=== PATIENT | male | born 1955 | race Caucasian/White ===

== ENCOUNTER 2018-12-12 08:51 | Outpatient (REF) | payer BC, SELFPAY ==
[2018-12-12 18:25] LABS: HCT 46.5 % (40.0-50.0); Mean Corp. HGB Concentration 34.4 g/dL (32.0-36.0); Mean Corpuscular Hemoglobin 31.8 pg (27.0-33.0); Mean Corpuscular Volume 92.4 fL (80-95); Mean Platelet Volume 10.7 fL (8.0-11.0); Platelet Count 141 x1000/uL (130-400); RBC 5.03 m/cumm (4.50-6.00); White Blood Cell Count 5.64 k/cumm (4.4-10.8)
[2018-12-12 18:48] LABS: Anion Gap 6.4 mmol/L (3-11); BUN 16 mg/dL (7-18); CO2 30.6 mmol/L (21.0-32.0); CREATININE 0.92 mg/dL (0.70-1.30); Calcium 8.2 mg/dL (8.5-10.1); Chloride 105 mmol/L (98-107); FREE T4 0.93 ng/dL (0.76-1.46); Glucose 96 mg/dL (70-100); Potassium 4.1 mmol/L (3.5-5.1); Sodium 142 mmol/L (136-145); TSH 7.85 uIU/mL (0.358-3.74)
[2018-12-12 19:29] LABS: Hemoglobin A1C 5.5 % (4.5-6.2)
[2018-12-14 10:42] LABS: PSA, Screening 1.9 ng/ml (0-4.5)
== END 2018-12-12 09:11 ==
LOC: NCHCN 08:51
PROVIDERS: PCP Internal Medicine; Visit Provider Internal Medicine
DX: I48.0 Paroxysmal atrial fibrillation (principal); E05.00 Thyrotoxicosis with diffuse goiter without thyrotoxic crisis or storm
CPT/HCPCS: 80048; 84153; 85027; 83036; 84439; 84443

== ENCOUNTER 2019-06-13 16:43 | Outpatient (REF) | payer BC, SELFPAY ==
[2019-06-13 20:13] LABS: HCT 47.1 % (40.0-50.0); HGB 15.9 g/dL (13.5-17.5); Mean Corp. HGB Concentration 33.8 g/dL (32.0-36.0); Mean Corpuscular Hemoglobin 31.1 pg (27.0-33.0); Mean Corpuscular Volume 92.2 fL (80-95); Mean Platelet Volume 10.3 fL (8.0-11.0); Platelet Count 183 x1000/uL (130-400); RBC 5.11 m/cumm (4.50-6.00); RBC Distribution Width 13.8 % (11.8-14.1); White Blood Cell Count 6.85 k/cumm (4.4-10.8)
[2019-06-13 20:32] LABS: TSH 5.49 uIU/mL (0.36-3.74)
== END 2019-06-13 17:03 ==
LOC: NCHCN 16:43
PROVIDERS: PCP Internal Medicine; Visit Provider Internal Medicine
DX: I48.0 Paroxysmal atrial fibrillation (principal); E05.00 Thyrotoxicosis with diffuse goiter without thyrotoxic crisis or storm
CPT/HCPCS: 85027; 84443

== ENCOUNTER 2019-10-09 08:52 | Outpatient (REF) | payer BC, SELFPAY ==
[2019-10-09 19:15] LABS: HCT 46.9 % (40.0-50.0); HGB 16.2 g/dL (13.5-17.5); Mean Corp. HGB Concentration 34.5 g/dL (32.0-36.0); Mean Corpuscular Hemoglobin 31.5 pg (27.0-33.0); Mean Corpuscular Volume 91.2 fL (80-95); Mean Platelet Volume 10.1 fL (8.0-11.0); Platelet Count 187 x1000/uL (130-400); RBC 5.14 m/cumm (4.50-6.00); RBC Distribution Width 13.7 % (11.8-14.1); White Blood Cell Count 5.89 k/cumm (4.4-10.8)
[2019-10-09 19:46] LABS: FREE T4 1.01 ng/dL (0.76-1.46); TSH 5.08 uIU/mL (0.36-3.74)
== END 2019-10-09 09:12 ==
LOC: NCHCN 08:52
PROVIDERS: PCP Internal Medicine; Visit Provider Internal Medicine
DX: I48.0 Paroxysmal atrial fibrillation (principal); I10 Essential (primary) hypertension
CPT/HCPCS: 85027; 84439; 84443

== ENCOUNTER 2020-06-30 10:26 | Outpatient (REF) | payer BC, SELFPAY ==
[2020-07-03 13:03] LABS: Patient Race White; SARS-CoV-2 Specimen Source Nasal
[2020-07-03 14:40] LABS: SARS-CoV-2 RNA Detected (Undetected)
== END 2020-06-30 10:46 ==
LOC: NCHCN 10:26
PROVIDERS: PCP Internal Medicine; Visit Provider Internal Medicine
DX: J06.9 Acute upper respiratory infection, unspecified (principal)
CPT/HCPCS: U0003

== ENCOUNTER 2020-09-05 17:14 | Outpatient (REF) | payer BC, SELFPAY ==
[2020-09-05 16:06] LABS: HCT 47.6 % (40.0-50.0); MCH 31.2 pg (27.0-33.0); MCHC 33.6 % (32.0-36.0); MCV 92.8 fL (80-95); MPV 10.2 fL (8.0-11.0); Platelet Count 172 10^3/uL (130-400); RBC 5.13 10^6/uL (4.36-5.78); RDW 14.2 % (11.8-14.1); RDW-SD 48.7 fL; WBC 6.06 10^3/uL (4.4-10.8)
[2020-09-05 16:27] LABS: TSH 7.88 uIU/mL (0.36-3.74)
== END 2020-09-05 17:34 ==
LOC: NCHCN 17:14
PROVIDERS: PCP Internal Medicine; Visit Provider Internal Medicine
DX: E05.00 Thyrotoxicosis with diffuse goiter without thyrotoxic crisis or storm (principal)
CPT/HCPCS: 85027; 84443

== ENCOUNTER 2020-11-05 15:28 | Outpatient (REF) | payer MEDICARE, BC, SELFPAY ==
[2020-11-05 20:40] LABS: HCT 47.8 % (40.0-50.0); HGB 16.6 g/dL (13.5-17.5); MCH 31.9 pg (27.0-33.0); MCHC 34.7 % (32.0-36.0); MCV 91.9 fL (80-95); MPV 10.1 fL (8.0-11.0); Platelet Count 165 10^3/uL (130-400); RDW 12.7 % (11.8-14.1); RDW-SD 43.3 fL
[2020-11-05 20:59] LABS: ALT 27 U/L (16-63); Anion Gap 10.6 mmol/L (3-11); BUN 18 mg/dL (7-18); CO2 28.4 mmol/L (21.0-32.0); CREATININE 0.9 mg/dL (0.70-1.30); Calcium 8.8 mg/dL (8.5-10.1); Calculated LDL 115 mg/dL (<100); Chloride 104 mmol/L (98-107); Cholesterol 173 mg/dL (<200); Glucose 82 mg/dL (74-106); HDL Cholesterol 39 mg/dL (40-60); Potassium 3.5 mmol/L (3.5-5.1); Sodium 143 mmol/L (136-145); Triglyceride 99 mg/dL (<150)
[2020-11-06 17:30] LABS: PSA, Screening 3.2 ng/mL (0.0-4.5)
== END 2020-11-05 15:29 | disposition home or self-care (01) ==
LOC: NCHCN 15:28
PROVIDERS: PCP Internal Medicine; Visit Provider Internal Medicine
DX: I10 Essential (primary) hypertension (principal); I48.0 Paroxysmal atrial fibrillation; F32.9 Major depressive disorder, single episode, unspecified; G47.33 Obstructive sleep apnea (adult) (pediatric); Z12.5 Encounter for screening for malignant neoplasm of prostate
CPT/HCPCS: 80048; 80061; 84153; 85027; 84460

== ENCOUNTER 2021-03-17 11:40 | Outpatient (REF) | payer MEDICARE, BC, SELFPAY ==
[2021-03-17 20:05] LABS: HCT 47.9 % (40.0-50.0); HGB 15.9 g/dL (13.5-17.5); MCH 30.6 pg (27.0-33.0); MCHC 33.2 % (32.0-36.0); MCV 92.3 fL (80-95); MPV 10.1 fL (8.0-11.0); Platelet Count 152 10^3/uL (130-400); RBC 5.19 10^6/uL (4.36-5.78); RDW 13.4 % (11.8-14.1); RDW-SD 45.8 fL; WBC 5.45 10^3/uL (4.4-10.8)
[2021-03-17 20:35] LABS: TSH 5.63 uIU/mL (0.36-3.74)
== END 2021-03-17 11:41 | disposition home or self-care (01) ==
LOC: NCHCN 11:40
PROVIDERS: PCP Internal Medicine; Visit Provider Internal Medicine
DX: I48.0 Paroxysmal atrial fibrillation (principal); E05.00 Thyrotoxicosis with diffuse goiter without thyrotoxic crisis or storm
CPT/HCPCS: 85027; 84443

== ENCOUNTER 2021-11-11 16:55 | Outpatient (REF) | payer MEDICARE, SELFPAY ==
[2021-11-11 21:51] LABS: TSH 3.93 uIU/mL (0.36-3.74)
== END 2021-11-11 16:56 | disposition home or self-care (01) ==
LOC: NCHCN 16:55
PROVIDERS: PCP Internal Medicine; Visit Provider Internal Medicine
DX: E05.00 Thyrotoxicosis with diffuse goiter without thyrotoxic crisis or storm (principal)
CPT/HCPCS: 84443

== ENCOUNTER 2021-11-20 17:40 | Outpatient (REF) | payer MEDICARE, SELFPAY ==
[2021-11-20 19:05] LABS: HCT 47.3 % (40.0-50.0); MCH 31.4 pg (27.0-33.0); MCHC 33.8 % (32.0-36.0); MCV 92.7 fL (80-95); MPV 10.1 fL (8.0-11.0); Platelet Count 170 10^3/uL (130-400); RDW 13.2 % (11.8-14.1); RDW-SD 45.1 fL; WBC 7.49 10^3/uL (4.4-10.8)
[2021-11-20 19:22] LABS: BUN 20 mg/dL (7-18); CREATININE 0.9 mg/dL (0.70-1.30); Chloride 105 mmol/L (98-107); Glucose 109 mg/dL (74-106); Potassium 3.4 mmol/L (3.5-5.1); Sodium 143 mmol/L (136-145)
[2021-11-23 09:42] LABS: PSA, Screening 3.7 ng/mL (<=4.5)
[2021-11-23 11:06] LABS: Hepatitis C Ab w Rflx HCV PCR Negative (Negative)
== END 2021-11-20 17:41 | disposition home or self-care (01) ==
LOC: NCHCN 17:40
PROVIDERS: PCP Internal Medicine; Visit Provider Internal Medicine
DX: I10 Essential (primary) hypertension (principal); I48.0 Paroxysmal atrial fibrillation; Z12.5 Encounter for screening for malignant neoplasm of prostate; Z11.59 Encounter for screening for other viral diseases
CPT/HCPCS: 80048; 84153; 85027; 86803

== ENCOUNTER 2022-05-19 21:56 | Outpatient (REF) | payer MEDICARE, SELFPAY ==
[2022-05-19 22:10] LABS: Abs Immature Grans 0.02 10^3/uL (0.0-0.06); Absolute Basophil Count 0.04 10^3/uL (0.0-0.2); Absolute Lymphocyte Count 1.93 10^3/uL (1.2-3.4); Absolute Monocyte Count 0.85 10^3/uL (0.1-0.8); Absolute Neutrophil Count 5.33 10^3/uL (1.2-6.7); Basophils % 0.5; Eosinophils % 1.2; HCT 45.3 % (40.0-50.0); HGB 15.7 g/dL (13.5-17.5); Immature Grans % 0.2; Lymphocytes % 23.3; MCH 31.8 pg (27.0-33.0); MCHC 34.7 % (32.0-36.0); MCV 92 fL (80-95); MPV 10.8 fL (8.0-11.0); Monocytes % 10.3; Neutrophils % 64.5; Platelet Count 187 10^3/uL (130-400); RBC 4.94 10^6/uL (4.36-5.78); RDW 13.3 % (11.8-14.1); RDW-SD 45.2 fL; WBC 8.27 10^3/uL (4.4-10.8)
[2022-05-19 22:24] LABS: TSH 4.36 uIU/mL (0.36-3.74)
== END 2022-05-19 21:57 | disposition home or self-care (01) ==
LOC: NCHCN 21:56
PROVIDERS: PCP Internal Medicine; Visit Provider Internal Medicine
DX: E05.00 Thyrotoxicosis with diffuse goiter without thyrotoxic crisis or storm (principal); R35.0 Frequency of micturition
CPT/HCPCS: 84443; 85025

== ENCOUNTER 2022-12-03 12:24 | Outpatient (REF) | payer MEDICARE, SELFPAY ==
[2022-12-03 19:12] LABS: HCT 46.2 % (40.0-50.0); HGB 15.6 g/dL (13.5-17.5); MCH 31.5 pg (27.0-33.0); MCHC 33.8 % (32.0-36.0); MCV 93 fL (80-95); MPV 9.7 fL (8.0-11.0); Platelet Count 183 10^3/uL (130-400); RBC 4.95 10^6/uL (4.36-5.78); RDW 14.1 % (11.8-14.1); WBC 5.49 10^3/uL (4.4-10.8)
[2022-12-03 19:26] LABS: ALT 22 U/L (16-63); Anion Gap 4.9 mmol/L (3-11); BUN 16 mg/dL (7-18); CO2 32.1 mmol/L (21.0-32.0); CREATININE 1.1 mg/dL (0.70-1.30); Calcium 9.1 mg/dL (8.5-10.1); Calculated LDL 108 mg/dL (<100); Chloride 105 mmol/L (98-107); Cholesterol 166 mg/dL (<200); Estimated GFR 73.58 (mL/min/1.73m2); Glucose 100 mg/dL (74-106); HDL Cholesterol 45 mg/dL (40-60); Potassium 4.3 mmol/L (3.5-5.1); Sodium 142 mmol/L (136-145); TSH 5.99 uIU/mL (0.36-3.74); Triglyceride 69 mg/dL (<150)
== END 2022-12-03 12:25 | disposition home or self-care (01) ==
LOC: NCHCN 12:24
PROVIDERS: PCP Internal Medicine; Visit Provider Internal Medicine
DX: E05.00 Thyrotoxicosis with diffuse goiter without thyrotoxic crisis or storm (principal); I10 Essential (primary) hypertension; E78.5 Hyperlipidemia, unspecified; E66.9 Obesity, unspecified
CPT/HCPCS: 80048; 80061; 85027; 84443; 84460

== ENCOUNTER 2022-12-29 17:36 | Outpatient (REF) | payer MEDICARE, SELFPAY ==
[2022-12-30 19:53] LABS: PSA, Screening 3.4 ng/mL (<=4.5)
== END 2022-12-29 17:37 | disposition home or self-care (01) ==
LOC: NCHCN 17:36
PROVIDERS: PCP Internal Medicine; Visit Provider Internal Medicine
DX: N40.0 Benign prostatic hyperplasia without lower urinary tract symptoms (principal); Z12.5 Encounter for screening for malignant neoplasm of prostate
CPT/HCPCS: 84153

== ENCOUNTER 2023-07-29 15:03 | Outpatient (REF) | payer MEDICARE, SELFPAY ==
[2023-07-29 19:10] LABS: TSH 4.01 uIU/mL (0.36-3.74)
== END 2023-07-29 15:04 | disposition home or self-care (01) ==
LOC: NCHCN 15:03
PROVIDERS: PCP Internal Medicine; Visit Provider Internal Medicine
DX: E05.00 Thyrotoxicosis with diffuse goiter without thyrotoxic crisis or storm (principal); I10 Essential (primary) hypertension
CPT/HCPCS: 84443

== ENCOUNTER 2024-01-24 08:44 | Outpatient (REF) | payer MEDICARE, SELFPAY ==
[2024-01-24 18:58] LABS: HCT 48.4 % (40.0-50.0); HGB 16.5 g/dL (13.5-17.5); MCH 31.6 pg (27.0-33.0); MCHC 34.1 % (32.0-36.0); MCV 93 fL (80-95); MPV 10.2 fL (8.0-11.0); Platelet Count 170 10^3/uL (130-400); RBC 5.22 10^6/uL (4.36-5.78); RDW 13.5 % (11.8-14.1); RDW-SD 46.4 fL; WBC 5.54 10^3/uL (4.4-10.8)
[2024-01-24 19:22] LABS: TSH 6.46 uIU/Ml (0.36-3.74)
[2024-01-25 17:59] LABS: PSA, Screening 3.9 ng/mL (<=4.5)
== END 2024-01-24 08:45 | disposition home or self-care (01) ==
LOC: NCHCN 08:44
PROVIDERS: PCP Internal Medicine; Visit Provider Internal Medicine
DX: E05.00 Thyrotoxicosis with diffuse goiter without thyrotoxic crisis or storm (principal); N40.1 Benign prostatic hyperplasia with lower urinary tract symptoms; R94.6 Abnormal results of thyroid function studies; Z12.5 Encounter for screening for malignant neoplasm of prostate
CPT/HCPCS: 84153; 85027; 84443

== ENCOUNTER → 2024-05-03 10:16 | Outpatient (BNVA) | payer MEDICARE, SELFPAY | PROVIDERS: PCP Internal Medicine; Referring Provider Internal Medicine; Visit Provider Student in an Organized Health Care Education/Training Program | DX: M12.562 Traumatic arthropathy, left knee (principal) | CPT/HCPCS: 20610; 99202; J1010 ==

== ENCOUNTER → 2024-08-13 08:03 | Outpatient (BNVA) | payer MEDICARE, SELFPAY | PROVIDERS: PCP Internal Medicine; Referring Provider Internal Medicine; Visit Provider Student in an Organized Health Care Education/Training Program | DX: M12.562 Traumatic arthropathy, left knee (principal) | CPT/HCPCS: 20610; J1010 ==

== ENCOUNTER 2024-08-28 09:26 | Outpatient (REF) | payer MEDICARE, SELFPAY ==
[2024-08-28 19:23] LABS: TSH 6.34 uIU/mL (0.36-3.74)
== END 2024-08-28 09:27 | disposition home or self-care (01) ==
LOC: NCHCN 09:26
PROVIDERS: PCP Internal Medicine; Visit Provider Internal Medicine
DX: E05.00 Thyrotoxicosis with diffuse goiter without thyrotoxic crisis or storm (principal)
CPT/HCPCS: 84443

== ENCOUNTER 2024-12-20 13:29 | Outpatient (CLI) | payer MEDICARE, SELFPAY ==
--- NOTE | 2024-12-20 13:15 | DI.RAD_ITS ---
Exam(s) XR KNEE LT 1V XR STANDING ALIGNMENT EXAM: XR STANDING ALIGNMENT CLINICAL HISTORY: PRE OP. TECHNIQUE: 2D digital imaging was performed. Standing AP views were performed from the pelvis throu gh the ankles. COMPARISON: CR,RF XR KNEE COMPLETE MIN 4V LT from 03/26/2024 CR XR KNEE LT 1V from 12/20/2024 FINDINGS: BONES: No acute fracture is present. No bony destructive lesion is seen. Leg length discrepancy: No significant overall leg length discrepancy. JOINTS: Knees: Moderate narrowing of the medial femoral tibial joint space of the left knee and mild- to-moderate narrowing of the medial femoral tibial joint of the right kneebilateral mild varus angula tion. The ankle joints are unremarkable. Hips: Mild narrowing of the right hip joint space and periarticular spurring. Moderate narrowing of the superior left hip joint space and periarticular spurring. SOFT TISSUE: Lower extremity edema. IMPRESSION: Moderate degenerative changes of the left knee. No significant leg length discrepancy. DATA REPOSITORY: RADIATION DOSE DELIVERED:
== END 2024-12-20 13:30 | disposition home or self-care (01) ==
LOC: DIORS 13:29
PROVIDERS: PCP Internal Medicine; Visit Provider Physician Assistant
DX: M12.562 Traumatic arthropathy, left knee (principal); Z01.818 Encounter for other preprocedural examination
CPT/HCPCS: 99024; 73560; 77073

== ENCOUNTER 2024-12-20 19:01 | Outpatient (REF) | payer MEDICARE, SELFPAY ==
[2024-12-20 19:39] LABS: HCT 46.7 % (40.0-50.0); HGB 15.5 g/dL (13.5-17.5); MCH 31.6 pg (27.0-33.0); MCHC 33.2 % (32.0-36.0); MCV 95 fL (80-95); MPV 10.4 fL (8.0-11.0); Platelet Count 151 10^3/uL (130-400); RBC 4.91 10^6/uL (4.36-5.78); RDW 13.8 % (11.8-14.1); RDW-SD 48.4 fL; WBC 5.83 10^3/uL (4.4-10.8)
[2024-12-20 19:45] LABS: Anion Gap 6.8 mmol/L (3-11); BUN 21 mg/dL (7-18); CO2 31.2 mmol/L (21.0-32.0); CREATININE 0.9 mg/dL (0.70-1.30); Calcium 9.3 mg/dL (8.5-10.1); Chloride 107 mmol/L (98-107); Estimated GFR 92.45 (mL/min/1.73m2); Glucose 103 mg/dL (74-106); Potassium 4.2 mmol/L (3.5-5.1); Sodium 145 mmol/L (136-145)
== END 2024-12-20 19:02 | disposition home or self-care (01) ==
LOC: LBN 19:01
PROVIDERS: PCP Internal Medicine; Visit Provider Student in an Organized Health Care Education/Training Program
DX: Z01.818 Encounter for other preprocedural examination (principal); M12.562 Traumatic arthropathy, left knee
CPT/HCPCS: 80048; 85027

== ENCOUNTER 2024-12-26 09:49 | Day surgery (SDC) | payer MEDICARE, SELFPAY ==
[2024-12-26] VITALS (17 sets, daily range): BP systolic 109–167; BP diastolic 45–70; PULSE 37–51; RESP 8–20; TEMP 36–36.4; O2SAT 93–99; BMI 34.7
[2024-12-26] MEDS: Acetaminophen 500 MG TAB 1000 MG PO (10:16)
[2024-12-26] MEDS: Lactated Ringers 1,000 ML 80 ML IV (10:42)
--- NOTE | 2024-12-26 11:00 | W.ANESPRE ---
General Info Date of Service Date Performed: 12/26/24 Height: 6 ft Weight: 116.3 kg Body Mass Index (BMI): 34.7 Surgical Procedure: Operation Date: 12/26/24 13:25 Proposed Procedure Side Surgeon p Knee Total Arthroplasty Left Luis Moody MD Meds Allergies and Home Medications Allergies Allergy/AdvReac Type Severity Reaction Status Date / Time Penicillins Allergy Intermediate Hives Verified 12/26/24 09:57 levofloxacin (From Levaquin) AdvReac Intermediate palpitation Verified 12/26/24 09:57 s lisinopril AdvReac Unknown Other (See Verified 12/26/24 09:57 Comment) tamsulosin (From Flomax) AdvReac palpitation Verified 12/26/24 09:57 s Home Medication ?Medication ?Instructions ?Recorded amlodipine 10 mg tablet 10 mg PO HS 03/27/24 clonazepam 1 mg tablet 0.5 mg PO DAILY PRN 03/27/24 methimazole 5 mg tablet 5 mg PO HS 03/27/24 rivaroxaban 10 mg tablet (Xarelto) 10 mg PO DAILY 03/27/24 fluticasone 250 mcg-salmeterol 50 1 inh inhalation BID PRN 05/03/24 mcg/dose blistr powdr for inhalation losartan 50 mg tablet 50 mg PO DAILY 08/13/24 celecoxib 200 mg capsule (Celebrex) 200 mg PO DAILY 12/20/24 levalbuterol tartrate 45 inhalation 12/26/24 mcg/actuation aerosol inhaler Current Visit Medications: Current Medications Generic Name Dose Route Start Last Admin Trade Name Freq PRN Reason Stop Dose Admin Acetaminophen 1,000 mg 12/26/24 06:00 Acetaminophen 500 Mg Tab PO 12/26/24 23:59 PREOP DORIS Acetaminophen 1,000 mg 12/26/24 07:38 Acetaminophen 500 Mg Tab PO 01/25/25 07:37 TID PRN PRN Analgesia Celecoxib 400 mg 12/26/24 06:00 i Celecoxib 200 Mg Cap PO 12/26/24 23:59 PREOP DORIS Docusate Sodium 100 mg 12/26/24 07:38 Docusate Sodium 100 Mg Cap PO 01/25/25 07:37 BID PRN PRN Constipation Gabapentin 300 mg 12/26/24 06:00 Gabapentin 300 Mg Cap PO 12/26/24 23:59 PREOP DORIS Ringer's Solution 1,000 mls @ 80 mls/hr 12/26/24 06:00 IV 12/26/24 23:59 INFUSION DORIS Cefazolin Sodium/Dextrose 2 gm in 50 mls @ 100 mls/hr 12/26/24 06:00 Ancef Duplex IVPB 12/26/24 23:59 PREOP DORIS Tranexamic Acid/Sodium Chloride 1,000 mg in 100 mls @ 600 mls/hr 12/26/24 06:00 IVPB 12/26/24 23:59 PREOP [facility] IV Miscellaneous Supplies 1 each 12/26/24 06:00 Iv Access IV 12/26/24 23:59 DIRECTED DORIS Ondansetron HCl 4 mg 12/26/24 07:38 Ondansetron 4 Mg/2 Ml Vial IVP 01/25/25 07:37 Q6H PRN PRN Nausea Oxycodone HCl 0 mg 12/26/24 07:38 Oxycodone 5 Mg Tab PO 01/25/25 07:37 Q3H PRN PRN Pain Polyethylene Glycol 17 gm 12/26/24 07:38 Polyethylene Glycol 3350 17 Gm Packet PO 01/25/25 07:37 BID PRN PRN Constipation Sodium Chloride 0 ml 12/26/24 06:00 Normal Saline Flush 10 Ml Syr IV 12/26/24 23:59 PRN PRN Sodium Chloride 0 ml 12/26/24 06:00 Normal Saline 10 Ml Vial IJ 12/26/24 23:59 DIRECTED PRN Sterile Water 0 ml 12/26/24 06:00 Water,Injection,Sterile 10 Ml Vial IJ 12/26/24 23:59 DIRECTED PRN Tranexamic Acid 1,300 mg 12/26/24 07:38 Tranexamic Acid 650 Mg Tab PO 01/25/25 07:37 ONCE PRN PFSH Active Problems Active Problems: Problem Status Onset Code History of total left knee replacement Acute Z96.652 BPH (benign prostatic hyperplasia) Chronic N40.0 Mild intermittent asthma Acute J45.20 Subarachnoid hemorrhage Acute I60.9 Paroxysmal atrial fibrillation Acute I48.0 Secondary pulmonary arterial hypertension Acute I27.21 Hypertension Chronic I10 JOS (obstructive sleep apnea) Chronic G47.33 Major depression Chronic F32.9 Obesity Chronic E66.9 Medical History Medical History Graves disease Controlled per pt. History of cardioversion x9 Hyperlipidemia Toxic diffuse goiter Tobacco Smoking/Tobacco Use Status: Never Passive smoking exposure: No Alcohol Alcohol Intake: never Substance Use Substance use: Never Substance use type: does not use Vital Signs and Lab Results Lab Results Blood Type / Crossmatch: No Data to Display Complete Blood Count: White Blood Count 5.83 10^3/uL (4.4-10.8) 12/20/24 19:30 Red Blood Count 4.91 10^6/uL (4.36-5.78) 12/20/24 19:30 Hemoglobin 15.5 g/dL (13.5-17.5) 12/20/24 19: Hematocrit 46.7 % (40.0-50.0) 12/20/24 19:30 Platelet Count 151 10^3/uL (130-400) 12/20/24 19:30 Complete Metabolic Panel: Sodium 145 mmol/L (136-145) 12/20/24 14:25 Potassium 4.2 mmol/L (3.5-5.1) 12/20/24 14:25 Chloride 107 mmol/L (98-107) 12/20/24 14:25 Carbon Dioxide 31.2 mmol/L (21.0-32.0) 12/20/24 14:25 BUN 21 mg/dL (7-18) H 12/20/24 14:25 Creatinine 0.9 mg/dL (0.70-1.30) 12/20/24 14:25 Est GFR (CKD-EPI 2020) 92.45 (mL/min/1.73m2) 12/20/24 14:25 Calcium 9.3 mg/dL (8.5-10.1) 12/20/24 14:25 Glucose 103 mg/dL (74-106) 12/20/24 14:25 Liver Function Panel: No Data to Display Coagulation Panel: No Data to Display Cardiac Panel: No Data to Display Arterial Blood Gas: No Data to Display Venous Blood Gas: No Data to Display Pancreas Panel: No Data to Display Thyroid Panel: No Data to Display Infectious Disease: No Data to Display Blood Cultures: No Data to Display Toxicology Panel: No Data to Display Anesthesia Assessment and Plan Anesthesia History Personal History: No History of Anesthesia Complications Family History: No Family History of Anesthesia Complications Exercise Tolerance Exercise Tolerance: Metabolic Equivalents>4 Pertinent Negatives Pertinent Negatives: No Symptoms of GERD, No Major Cardiovascular Symptoms or Complaints, No Major Pulmonary Symptoms or Complaints and No History of CVA/TIA Cardiac & Pulmonary Exam Cardiac Exam: Normal S1/S2 Heart Sounds Pulmonary Exam: Clear Bilateral Breath Sounds and No cough or Cold Implantable Cardiac Device Does patient have a Pacemaker or an ICD?: No Airway Exam Known Difficult Airway: No Mallampati Class: 3 Mouth Opening: Normal (> 3cm) Thyromental Distance: Greater than 3 cm Facial Hair: Full Gutierrez Neck Range of Motion: Full ROM Neck Circumference: Normal Teeth Condition: Normal Dentition ASA Classification ASA Score: ASA 2 Emergency Case?: No NPO Status NPO Status: NPO Clears >2 hours, Solids >8 hours Anesthesia Plan Resuscitation Status: Full Code Anesthesia Technique: Spinal Anesthesia Airway Planned: Natural Airway Pain Management: Surgeon and patient request nerve block Monitors Used: Standard Monitors
--- NOTE | 2024-12-26 11:31 | W.ANESNERVE ---
Nerve Block Single Injection Procedure Date and Time Date Performed: 12/26/24 Procedure Start: 11:15 Location Where Procedure Performed Procedure Location: Day Surgery Unit Reason Performed: Postoperative Analgesia Requesting Provider: Luis Moody Timeout Performed Timeout Performed: Yes Monitoring Used ECG, Blood Pressure, SpO2 and See EMR for corresponding vital signs Sterility Sterility: Hand Hygiene, Surgical Mask, Sterile Gloves and Chlorhexidine Sedation Given During Procedure Sedation Given (Indicate Dose Given): Versed IV Dose:: 2mg Patient Mental Status Patient Mental Status: Sedate with meaningful communication Nerve Block 1st Nerve Block: Laterality: Left Block Type: Adductor Canal Ultrasound Image Saved?: Yes Needle / Catheter Used: 100mm SonoPlex II Local Anesthetic Bolus (Indicate Dose Given): Lidocaine used for local infiltration of skin, Bupivacaine 0.25% Dose:: 7.5 cc and Exparel Dose:: 7.5cc Additives (Indicate Dose Given): None Ultrasound: Sterile probe cover and gel used Nerve Stimulator: Supplement to Ultrasound use and No twitch or parasthesia noted < 0.5 mA Paresthesia: None Procedure Tolerated: No Complications and Patient tolerated well Procedure Outcome: Successful Performed By: Akshat Head Supervised By: Maegan Ford
[2024-12-26] MEDS: ceFAZolin 2 GM/50 ML BAG IVPB (11:45)
[2024-12-26] MEDS: TRANEXAMIC ACID/SOD. CHL. 1,000 MG/100 ML BAG 600 MG IVPB (12:08)
--- NOTE | 2024-12-26 13:10 | W.PM.OP ---
Operative Note Operative Note PRE-OP DIAGNOSIS: Left Knee Osteoarthritis POST-OP DIAGNOSIS: same PROCEDURE: Left Total Knee Replacement SURGEON: Luis Moody PHYSICIAN RELATIONS SPECIALIST: Marley Roman ANESTHESIA TYPE: Spinal Refer to Anesthesia Record ESTIMATED BLOOD LOSS: 50 PATHOLOGY: none sent TOURNIQUET TIME: 0 COMPLICATIONS: None Patient was transported to: PACU Patient's condition: stable Implants: 1. Depuy Attune Cementless Cruciate Retaining Femoral Component, Size 8 2. Depuy Attune Cementless Fixed Bearing Tibial Component, Size 8 3. Depuy Attune 8x7mm CR/FB Poly Indications: I have seen Jorge in clinic for symptoms of knee arthritis, confirmed with radiographic findings. Jorge has exhausted nonoperative methods and was having significant limitations in daily function and desired better function and less pain. I discussed the technical details of a knee replacement. I explained the risks of the procedure to include, but not limited to, bleeding, infection, pain, stiffness, fracture, damage to nerves and vessels, damage to muscles and tendons, loosening, need for repeat procedure, blood clot and cardiopulmonary demise. Despite these risks, he elected to proceed. Findings: There was significant signs of arthritis throughout the knee. Procedure Description: Jorge was greeted in the preoperative holding area where the correct side was identified and marked. The consent was reviewed with the patient and signed. The history and physical was updated. All questions were answered. Preoperative medications were administered: Acetaminophen 1000mg, Celebrex 400mg, and Gabapentin 300mg. An adductor canal block was then administered by the anesthesia team in the DSU. He was taken back to the operating room. A spinal anesthestic was then administered. The patient was placed into the supine position on the operating room table. Posts were placed for positioning during the procedure. All bony prominences were well padded. Prophylactic antibiotics in the form of Cefazolin were administered. 1g of Tranxemic Acid was given intravenously within 30 minutes of incision. The left leg was then prepped with Chloraprep and draped in a standard fashion with impervious stockinette. A second prep with Chloraprep was performed prior to application of Iodine impregnated skin protection. A timeout to confirm correct identity, side and site, procedure, allergies, anesthesia, and medical concerns was performed. With the knee in some flexion, a midline incision was made overlying the knee. Full thickness skin flaps were raised once the extensor mechanism was encountered. These were raised medially and laterally. Any bleeding was controlled with electrocautery. Once the extensor mechanism was fully exposed, a medial parapatellar arthrotomy was performed in a flexed position. All bleeding from the arthrotomy and the geniculate arteries was coagulated. A medial subperiosteal peel was performed with electrocautery to the midcoronal plane. The fat pad was removed while keeping the patellar tendon protected. The anterior distal femur synovium was removed for later visualization. The ACL and PCL were resected and the anterior horn of the lateral meniscus was transected. The knee was then flexed with the patella everted. Large osteophytes from the tibia were removed. Large osteophytes from the femur were removed. Using a step drill, and based on preoperative templating, the femoral canal was entered. This was done with a step drill without any difficulty. The intramedullary distal femoral cut guide was inserted, set to a 6 degree valgus cut and 9mm cut thickness. The distal femoral cut guide was then held in position and pinned. With the soft tissues protected, the distal cut was performed. This was passed over a few times to ensure a planar cut. I then turned attention to the tibia. The extramedullary guide was placed onto the leg. The distal aspect was slid medial to adjust for position of center of ankle and stay in line with shaft of the tibia. Approximately 5 degrees of posterior slope was kept in the proximal cutting guide. The center of the guide was aligned with the PCL. The stylus was used to assess cut thickness. The medial side, most involved side, was set for a 3mm cut. This was then held in position and pinned into place with 2 additional pins and a cross pin for stability. The medial and lateral collateral ligaments were protected and the cut was performed. With this completed, it was assessed and noted to be of appropriate dimensions. The guide was removed. A spacer block was inserted and the knee was brought into extension. The 6mm spacer block provided full extension, without hyperextension and with stability of both the medial and lateral collateral ligaments was assessed. The pins from the femur and the tibia were then removed. The distal femur was then sized. The anterior stylus was placed onto the lateral ridge of the anterior femur. This indicated a size 8 femur. The external rotation of the guide was adjusted to 5 degrees to match the epicondylar axis, perpendicular to [place]?s line. The 4-in-1 cutting guide was the placed. The posterior medial femur cut was evaluated and appeared of good thickness. The spacer block was inserted underneath the cutting guide and stability was confirmed in 90 degrees of flexion. An julisa wing was used to confirm appropriate position of the anterior cut to avoid notching. This cutting guide was ensured to be flush on the cut surface and then pinned into place with headed pins. While protecting the soft tissues, quad tendon, and collateral ligaments, the anterior and posterior cuts were performed with a saw. The central two pins were removed and the posterior and anterior chamfers were cut next. The notch-cutting guide was placed. This was pinned to lateralize the femoral component as much as possible while keeping it flush on the cut surface. This was then pinned into position. A reciprocating saw was used to make the notch cut. A rasp smoothed the cut surfaces. The medial and lateral menisci were removed. A trial femoral component was then inserted, impacted down to the cut surfaces, and the lug holes were drilled. A provisional trial tibial component was placed and the knee was brought through range of motion. The polyethylene was trialed until there was good flexion and extension with excellent stability to the medial and lateral collaterals. The patella was tracking without thumbs. A size 7mm polyethylene component provided the best range of motion and stability with less than 2mm gapping with medial and lateral stress and full extension without significant hyperextension. The tibial cut surface was fully exposed. The tibia was then sized as a 8. The tibia had been previously marked during trialing to correspond to the center of the tibial component to help with rotation. The trial was aligned to this marley, approximately rotated to the medial 1/3rd of the tibial tubercle. The trial was pinned into place. The tibia was prepared with a reamer and a keel punch and lug holes. The trial components were removed. The final components were opened on the back table. The periosteal and capsular tissues, especially posteriorly, around the knee were then systematically injected with a periarticular cocktail consisting of 246mg of Ropivacaine, 0.5mg of Epinephrine, 0.08mg of Clonidine, and 30mg of Ketorolac, diluted to 100cc. On the back table, with the implants opened. The cementless knee components were placed. Starting with the tibial component, the tibia was subluxed anteriorly and the lug holes of the component were lined up. The tibia was then impacted with an impactor and mallet until the tibial component was in contact with the tibia. Then, the femoral component was inserted. The lug holes were aligned and the component was impacted into position. The final polyethylene component was inserted. The knee was irrigated with Surgiphor Betadine solution. This was allowed to sit in the knee for 3 minutes and then it was irrigated out with saline. The patella was tracking with a no-thumbs technique. The capsule was then reapproximated with a No. 1 Vicryl at multiple locations. The capsule was finally closed with a No. 2 Stratafix, barbed suture. Deep tissues were then reapproximated with 0 Vicryl and 2-0 Vicryl. The skin was closed with a running 3-0 Monocryl in a subcuticular fashion. This was reinforced with skin glue. A Mepilex silver dressing was applied along with a [id number] BHUMIKA wrap. A CryoCuff was applied. Kip was transferred to the hospital bed without difficulty an suffering no apparent complication. Kip has a good prognosis. Physical therapy will start today and without restrictions, weight-bearing as tolerated. His home dose of Rivaroxaban (10mg daily) will be used for DVT prophylaxis. Date of Procedure: 12/26/24
--- NOTE | 2024-12-26 13:38 | PDOC.DSDIS_ITS ---
Date of service: 12/26/24 Discharge Plan Disposition Patient Disposition: Home Condition: Good Discharge Details Reason For Visit: L TKR Attending Provider: Luis Moody Primary Care Provider: Akshat Murrieta Home Meds and New Rx's Prescriptions: New acetaminophen 500 mg tablet 1,000 mg PO TID Qty: 90 3RF celecoxib 200 mg capsule 200 mg PO BID Qty: 60 0RF dexamethasone 4 mg tablet 4 mg PO DAILY Qty: 2 0RF docusate sodium 100 mg capsule 100 mg PO BID PRNQty: 28 0RF pantoprazole 40 mg tablet,delayed release (DR/EC) 40 mg PO DAILY Qty: 14 0RF gabapentin 300 mg capsule 300 mg PO QHS Qty: 14 0RF oxycodone 5 mg tablet 5 mg PO Q4H PRNQty: 18 0RF Continued amlodipine 10 mg tablet 10 mg PO HS clonazepam 1 mg tablet 0.5 mg PO DAILY PRN Rx Instructions: 1/2 to 3/4 tablet by mouth daily, as needed methimazole 5 mg tablet 5 mg PO HS Xarelto 10 mg tablet 10 mg PO DAILY Rx Instructions: for 35 days fluticasone propion-salmeterol 250-50 mcg/dose blister with device 1 inh inhalation BID PRN losartan 50 mg tablet 50 mg PO DAILY levalbuterol tartrate 45 mcg/actuation HFA aerosol inhaler INHALATION Patient Comments: INHALE 1 PUFF INTO LUNGS EVERY 4 TO 6 HOURS NEEDED Discontinued celecoxib [Celebrex] 200 mg capsule 200 mg PO DAILY Discharge Instructions Additional Instructions: Total Knee Discharge Instructions Activity: The most important activity is to walk and to work on gentle motion (both flexion and extension). You should try to take short walks a few times a day. It is important that when resting you work on keeping the knee straight. Avoid putting a pillow behind the knee as this will encourage flexion. Work on range of motion exercises as provided by Physical Therapy. - Start outpatient physical therapy within 2 weeks. - You should wear the ARNEL hose on both legs for 2 weeks. You may remove these at night. You may also use any compression sock in place of the ARNEL hose. - Utilize [employer] to review exercises, see videos on exercises and obtain basic information pertaining to your surgery and your recovery. Dressing: Remove the Robin wrap by 2 days after your surgery and put on the ARNEL stocking given to you from the hospital. Keep the surgical dressing (underneath the ROBIN wrap) in place for at least one week. After the first week it may be removed and replaced with light gauze and tape or nothing. The wound and dressing may get wet after 3 days but avoid soaking the dressing or otherwise it will need to be changed. Many people prefer covering the dressing with cling wrap (saran wrap) to minimize it from getting soaked. If it gets wet, just pat dry. If it starts to peel off then it will need to be changed. Medications: - You should take Tylenol and anti-inflammatory Celebrex as your primary pain c ontrol medications. If the Celebrex is too expensive or not covered, please call the office for another alternative (Advil/Ibuprofen or Naproxen/Aleve) - You have been prescribed a stronger pain medication Oxycodone for breakthrough pain, take as needed as prescribed. - You have also been prescribed a stomach acid reduction agent Pantoprozole to help reduce stomach acid and reflux. - You have been prescribed Gabapentin to take at night for restlessness and nerve pain. - You will be taking your rivaroxaban for DVT prevention unless instructed otherwise. - You have also been prescribed Decadron to take to control post-operative nausea and pain. You will start this tomorrow. - If you have constipation you should take Colace or Miralax (both [id number]). It takes most people 3-4 days to have a bowel movement. Follow-up: 2 weeks If you have any acute concerns or questions, please do not hesitate to contact the office at [phone]. You may contact Dr. Moody with any questions after hours through the hospital at [phone] or on his cell phone at [phone]. Referrals: Luis Moody MD [ [facility] STAFF PHYSICIAN] - Equipment/Supplies: Walker Activity:: Activity as Tolerated Shower/Bathe:: 72 hours Diet:: As Tolerated Discharge Orders Discharge Orders: Discharge Order (Routine); Ordered 12/26/24 Ordered By: Faisal Roman DS: Diagnosis Discharge Diagnosis (1) History of total left knee replacement: Status: Acute
--- NOTE | 2024-12-26 14:02 | W.ANESPOSTOP ---
Postoperative Evaluation Date, Time and Location Date Performed: 12/26/24 Time Performed: 14:03 Patient Location: PACU Vital Signs Most Recent Imported Vital Signs: Most Recent Vital Signs Temp Pulse Resp BP Pulse Ox 36.4 C L 40 L 16 137/57 L 99 12/26/24 13:30 12/26/24 11:09 12/26/24 11:09 12/26/24 11:40 12/26/24 11:09 Pain Score Most Recent Pain Score: Most Recent Pain Score Pain Level 0 12/26/24 13:40 Assessment Mental Status: Awake (Alert & Oriented to Patient Baseline) Airway and Respiratory Function: Patent airway with normal (patient baseline) respiratory exam Cardiovascular Function: Hemodynamically Stable Hydration Status: Adequately Hydrated Nausea & Vomiting: No Nausea or Vomiting Pain: Pt. Denies Any Pain Peripheral Nerve Block: Regional nerve block not resolved at time of post operative discharge Teaching Patient Teaching: Discussed Safe Use of Pain Medication Given Recent Anesthesia and Discussed Safe Use of Pain Medication Given Likely or Known JOS
--- NOTE | 2024-12-26 15:53 | IN_ITS ---
PT Notes Visit Reasons: L TKR Physical Therapy Day Surgery Initial Evaluation Date: 12/26/2024 Referring Doctor: CHILANGO Castillo/Dr. Moody PT Orders: PT CONSULT: Status post Ortho surgery Precautions: Weightbearing as tolerated left lower extremity Patient Profile/Admitting Diagnosis: Jorge is a 69-year-old male presenting status post elective left TKA under spinal anesthesia with block performed by Dr. Moody on 12/26/2024. Postop uncomplicated PMHX: BPH, asthma, SAH, paroxysmal A-fib, secondary pulmonary arterial hypertension, JOS, hypertension, major depression, obesity Social History/Home Situation:Pt lives with in single family home with 2 CATIE without Rail. Pt is very active and has a fitness routine. He is independent with ambulation, ADL, driving, shopping meal prep. is able to assist as needed. Equipment Owned/DME: [facility] Subjective: Patient reports he is feeling well Objective: [] General Observation: Male presenting semireclined on stretcher with Cryo/Cuff to knee. present Mental Status: Alert and oriented x 4, flat affect, able to follow instructions, agreeable to participate in eval Pain: left knee 2/10 with activity ROM: [] Right Upper Extremity: WNL Left Upper Extremity: WNL Right Lower Extremity:WNL Left Lower Extremity: hip and ankle WFL; knee 0-98degrees Strength: [] BUE: 5/5 Right Lower Extremity: 5/5 Left Lower Extremity: Patient able to perform SLR with shortened range without lag. Strong quad set without compensation. Sensation: Intact Bed Mobility/Transfers: [] Supine to sit independent Sit to stand supervision with cues for hand placement Stand to sit supervision with cues for hand placement Bed to chair SBA with FWW Gait: Ambulated 150 feet with FWW standby assist initially with step to pattern then progressed to reciprocal. Patient demonstrates decreased knee flexion on left during swing phase intermittent cues for knee activation extension during mid stance. Stairs: 2 steps with 2 rails CGA step to pattern verbal cues for sequencing;Patient performed 2 steps with FWW on top step to simulate 2 step entry without railing at home with min assist for FWW placement on upper step Balance: [] Static Sitting: Normal Dynamic Sitting: Good Static Standing: Good Dynamic Standing: Fair plus Special Tests: [] Mobility Limitations Standardized Measure [] [facility] 6 clicks Basic Mobility Inpatient Short Form: [] Raw Score: 22 CMS Score: 20.91% Informed Consent/Education: Patient instructed in purpose of PT consult. Treatment: 32696 Packet containing TKA exercise protocol has been given to patient. Education and training on initial set of exercises that can be done at home have been completed with patient. Assessment: Patient is a 69-year-old male who Presents with clinical signs and symptoms consistent with current/admitting diagnoses that have resulted to mobility l imitations, gait instability, generalized weakness, and impairment of motor control as demonstrated by the following impairment level findings: 1. Decreased strength to left knee major muscle groups 2. Impaired standing balance 3. Limitation of joint range of motion in left knee 4. Impaired functional activity tolerance Impairments are contributing to the following functional limitations: 1. Inability to safely ambulate without assistive device 2. Increase completion time for mobility ADL performance 3. Increased fall risk 4. Difficulty performing stairs without assistance Patient is assessed as a low complexity based on the following: History: 69-year-old male with impairment level findings, functional limitations, and past medical history as indicated above Examination: Demonstrable impairment in strength, balance, and mobility level with underlying impairments and functional limitations as documented above Presentation: Stable Decision Making: Low Goals: N/A. PT evaluation and 1-2 treatment sessions only for functional mobility training using recommended AD and for HEP instruction. Plan of Care/Treatment Plan: N/A. PT evaluation and 1-2 treatment session only for functional mobility training using recommended AD and for HEP instruction. DISCHARGE RECOMMENDATIONS: Home with HEP and Outpatient PT as scheduled TREATMENT CODE/TIME: 02444, [id number]/ [id number] Thank you for the opportunity to participate in the care of this patient. Yoko Quiroga, PT [facility]
[2024-12-26] MEDS: Tranexamic Acid 650 MG TAB 1300 MG PO (16:00)
== END 2024-12-26 16:19 | disposition home or self-care (01) ==
PROVIDERS: PCP Internal Medicine; Visit Provider Student in an Organized Health Care Education/Training Program
PROC: (CPT 27447; principal; 2024-12-26 13:15)
DX: M17.12 Unilateral primary osteoarthritis, left knee (principal); G89.18 Other acute postprocedural pain
CPT/HCPCS: 27447; 64447; 97110; 97161; C1776; J0665; J0666; J0690; J1100; J2003; J2250; J2401; J2405; J2704

== ENCOUNTER 2025-01-10 13:34 | Outpatient (CLI) | payer MEDICARE, SELFPAY ==
--- NOTE | 2025-01-10 14:03 | DI.RAD_ITS ---
Exam(s) XR KNEE LT 1V EXAM: XR KNEE LT 1V CLINICAL HISTORY: F/U LEFT TKA. TECHNIQUE: 2D digital imaging was performed. COMPARISON: CR XR KNEE LT 1V from 12/20/2024 FINDINGS: Single lateral view of the left hip Satisfactory position alignment of the components of the recently placed prosthesis No fracture or loosening evident. IMPRESSION: Satisfactory appearance on this single lateral view. DATA REPOSITORY: RADIATION DOSE DELIVERED:
--- NOTE | 2025-01-10 14:03 | DI.RAD_ITS ---
Exam(s) XR STANDING ALIGNMENT EXAM: XR STANDING ALIGNMENT CLINICAL HISTORY: F/U LEFT TKA. TECHNIQUE: 2D digital imaging was performed. COMPARISON: CR XR STANDING ALIGNMENT from 12/20/2024 FINDINGS: 3 views There has been interval placement of a left knee prosthesis which appears satisfactory. In the oppos ite-right knee there is again noted moderate narrowing of the medial compartment and preservation of height of the lateral compartment. There are mild degenerative changes in the hips again noted, more so on the left side. Ankles unremarkable. No osseous lesions. Bone density normal. IMPRESSION: As above. DATA REPOSITORY: RADIATION DOSE DELIVERED:
== END 2025-01-10 13:35 | disposition home or self-care (01) ==
LOC: DIORS 13:35
PROVIDERS: PCP Internal Medicine; Referring Provider Internal Medicine; Visit Provider Physician Assistant
DX: Z96.652 Presence of left artificial knee joint (principal); Z47.1 Aftercare following joint replacement surgery
CPT/HCPCS: 99024; 73560; 77073

== ENCOUNTER 2025-01-30 17:34 | Outpatient (REF) | payer MEDICARE, SELFPAY ==
[2025-01-30 20:43] LABS: Abs Immature Grans 0.01 10^3/uL (0.0-0.06); Absolute Basophil Count 0.03 10^3/uL (0.0-0.2); Absolute Eosinophil Count 0.13 10^3/uL (0.0-0.7); Absolute Lymphocyte Count 1.62 10^3/uL (1.2-3.4); Absolute Monocyte Count 0.59 10^3/uL (0.1-0.8); Absolute Neutrophil Count 2.91 10^3/uL (1.2-6.7); Basophils % 0.6 %; Eosinophils % 2.5 %; HCT 46.4 % (40.0-50.0); HGB 15.5 g/dL (13.5-17.5); Immature Grans % 0.2 %; Lymphocytes % 30.6 %; MCH 32.1 pg (27.0-33.0); MCHC 33.4 % (32.0-36.0); MCV 96 fL (80-95); Monocytes % 11.2 %; Neutrophils % 54.9 %; Platelet Count 148 10^3/uL (130-400); RBC 4.83 10^6/uL (4.36-5.78); RDW 13.5 % (11.8-14.1); RDW-SD 48.4 fL; WBC 5.29 10^3/uL (4.4-10.8)
[2025-01-30 21:09] LABS: Anion Gap 5.5 mmol/L (3-11); BUN 17 mg/dL (7-18); CO2 30.5 mmol/L (21.0-32.0); CREATININE 0.9 mg/dL (0.70-1.30); Calcium 9.1 mg/dL (8.5-10.1); Chloride 105 mmol/L (98-107); Estimated GFR 92.45 (mL/min/1.73m2); Glucose 89 mg/dL (74-106); Potassium 4.1 mmol/L (3.5-5.1); Sodium 141 mmol/L (136-145); TSH 12.72 uIU/mL (0.36-3.74)
[2025-01-31 12:28] LABS: Calculated LDL 98 mg/dL (<100); Cholesterol 159 mg/dL (<200); HDL Cholesterol 47 mg/dL (>or=40); Triglyceride 72 mg/dL (<150)
[2025-01-31 18:04] LABS: PSA, Screening 4.9 ng/mL (<=4.5)
== END 2025-01-30 17:35 | disposition home or self-care (01) ==
LOC: NCHCN 17:34
PROVIDERS: PCP Internal Medicine; Visit Provider Internal Medicine
DX: E03.8 Other specified hypothyroidism (principal); Z12.5 Encounter for screening for malignant neoplasm of prostate; E78.5 Hyperlipidemia, unspecified; I10 Essential (primary) hypertension
CPT/HCPCS: 80048; 80061; 84153; 84443; 85025

== ENCOUNTER → 2025-02-07 13:04 | Outpatient (BNVA) | payer MEDICARE, SELFPAY | PROVIDERS: PCP Internal Medicine; Referring Provider Internal Medicine; Visit Provider Physician Assistant | DX: Z96.652 Presence of left artificial knee joint (principal); Z47.1 Aftercare following joint replacement surgery | CPT/HCPCS: 99024 ==

== ENCOUNTER 2025-02-28 08:44 | Outpatient (REF) | payer MEDICARE, SELFPAY ==
[2025-02-28 20:07] LABS: TSH 6.95 uIU/mL (0.36-3.74)
== END 2025-02-28 08:45 | disposition home or self-care (01) ==
LOC: NCHCN 08:44
PROVIDERS: PCP Internal Medicine; Visit Provider Internal Medicine
DX: E05.00 Thyrotoxicosis with diffuse goiter without thyrotoxic crisis or storm (principal)
CPT/HCPCS: 84443

== ENCOUNTER → 2025-03-28 13:19 | Outpatient (BNVA) | payer MEDICARE, SELFPAY | PROVIDERS: PCP Internal Medicine; Referring Provider Internal Medicine; Visit Provider Student in an Organized Health Care Education/Training Program | DX: Z47.1 Aftercare following joint replacement surgery (principal); Z96.652 Presence of left artificial knee joint | CPT/HCPCS: 99212 ==

== ENCOUNTER 2025-05-22 18:09 | Outpatient (REF) | payer MEDICARE, SELFPAY ==
[2025-05-22 21:00] LABS: TSH 3.09 uIU/mL (0.36-3.74)
== END 2025-05-22 18:10 | disposition home or self-care (01) ==
LOC: NCHCN 18:09
PROVIDERS: PCP Internal Medicine; Visit Provider Internal Medicine
DX: E05.00 Thyrotoxicosis with diffuse goiter without thyrotoxic crisis or storm (principal)
CPT/HCPCS: 84443